=== PATIENT | male | born 1970 | race Caucasian/White ===

== ENCOUNTER → 2017-04-07 | Outpatient (CLI) | payer SELFPAY ==
--- NOTE | 2017-04-07 10:52 | CT ---
EXAMINATION TYPE: CT heart w calcium score DATE OF EXAM: 04/07/2017 10:08 AM COMPARISON: NONE HISTORY: Screening for cardiovascular disorder. 213.9 CT DLP: 67.3 mGycm Automated exposure control for dose reduction was used. CT CALCIUM SCORING Coronary calcium is a marker for plaque (fatty deposits) in a blood vessel or atherosclerosis (harden ing of the arteries). The presence and amount of calcium detected in a coronary artery by the CT sca n, indicates the presence and amount of atherosclerotic plaque. These calcium deposits appear years before the development of heart disease symptoms such as chest pain and shortness of breath. A calcium score is computed for each of the coronary arteries based upon the volume and density of th e calcium deposits. This can be referred to as your calcified plaque burden. It does not correspond directly to the percentage of narrowing in the artery but does correlate with the severity of the un derlying coronary atherosclerosis. PROCEDURE TECHNIQUE - Prospective Gating was used. Slice thickness: 3mm. Density threshold (HU): 130, Pixel threshold: 3, Algorithm: discrete. RESULTS Region: LM Calcium Score ([place]at[place]): 0 Volume (mm3): 0 Mass (g): 0 Region: RCA Calcium Score ([place]at[place]): 0 Volume (mm3): 0 Mass (g): 0 Region: LAD Calcium Score (Agat[place]): 0 Volume (mm3): 0 Mass (g): 0 Region: CX Calcium Score ([place]at[place]): 0 Volume (mm3): 0 Mass (g): 0 Total: Calcium Score ([place]atston): 0 Volume (mm3): 0 Mass (g): 0 TOTAL CALCIUM SCORE: 0 OTHER: Visualized liver is hypodense consistent with fatty infiltration. IMPRESSION: Calcium Score: 0 Implication: No identifiable plaque. Risk of Coronary Artery Disease: Very low, generally less than 5%.
== END | disposition home or self-care (01) ==
LOC: RADCTMAIN 08:54
PROVIDERS: ATTEND Internal Medicine Interventional Cardiology
DX: R07.9 Chest pain, unspecified (principal); I10 Essential (primary) hypertension
CPT/HCPCS: 75571

== ENCOUNTER → 2017-07-07 | Outpatient (CLI) | payer BC | END | disposition home or self-care (01) | LOC: LABWHC1 10:13 | PROVIDERS: ATTEND Internal Medicine Endocrinology, Diabetes & Metabolism | DX: E11.65 Type 2 diabetes mellitus with hyperglycemia (principal) | CPT/HCPCS: 36415; 84681 ==

== ENCOUNTER → 2017-07-28 | Outpatient (CLI) | payer BC ==
--- NOTE | 2017-07-28 09:30 | FL ---
EXAMINATION TYPE: FL barium swallow DATE OF EXAM: 07/28/2017 COMPARISON: NONE HISTORY: Food sticking right side proximal neck TECHNIQUE: Double contrast esophagram is performed. FINDINGS: Double air-contrast technique is utilized. The esophagus dilates to normal caliber has norm al contour to the gastroesophageal junction. Gastroesophageal junction appears normal. No stenosis is identified. No filling defects are evident. Some mild tertiary contractions may be present compatibl e with mild presbyesophagus. Note is made of reflux to the level of the aortic arch during this exami nation. There is complete stripping of the esophageal bolus in the horizontal drinking position. Overhead radiographs were obtained. IMPRESSIONS: 1. Gastroesophageal reflux. 2. Mild presbyesophagus.
== END | disposition home or self-care (01) ==
LOC: RADFLMAIN 07:56
PROVIDERS: ATTEND Otolaryngology
DX: K21.9 Gastro-esophageal reflux disease without esophagitis (principal); K22.8 Other specified diseases of esophagus
CPT/HCPCS: 74220

== ENCOUNTER → 2018-02-15 | Outpatient (CLI) | payer BC ==
[2018-02-15 09:10] LABS: Cholesterol 174 mg/dL (<200); HDL Cholesterol 40 mg/dL (40-60); LDL Cholesterol,Calculated 58 mg/dL (0-99); Triglycerides 381 mg/dL (<150)
[2018-02-15 19:38] LABS: Hemoglobin A1C 7.5 % (4.0-6.0)
== END | disposition home or self-care (01) ==
LOC: LABWHC1 08:12
PROVIDERS: ATTEND Internal Medicine Endocrinology, Diabetes & Metabolism
DX: E11.65 Type 2 diabetes mellitus with hyperglycemia (principal)
CPT/HCPCS: 36415; 80061; 83036

== ENCOUNTER → 2018-05-19 | Outpatient (CLI) | payer BC ==
[2018-05-19 08:49] LABS: ALT 68 U/L (21-72); AST 33 U/L (17-59); Albumin 4.6 g/dL (3.5-5.0); Alkaline Phosphatase 50 U/L (38-126); Anion Gap 11 mmol/L; Blood Urea Nitrogen 28 mg/dL (9-20); Calcium 9.5 mg/dL (8.4-10.2); Carbon Dioxide 27 mmol/L (22-30); Chloride 102 mmol/L (98-107); Cholesterol 160 mg/dL (<200); Glucose 155 mg/dL (74-99); HDL Cholesterol 39 mg/dL (40-60); LDL Cholesterol,Calculated 66 mg/dL (0-99); Sodium 140 mmol/L (137-145); Total Bilirubin 1.1 mg/dL (0.2-1.3); Total Protein 6.8 g/dL (6.3-8.2); Triglycerides 277 mg/dL (<150)
== END | disposition home or self-care (01) ==
LOC: LABWHC1 07:44
PROVIDERS: ATTEND Internal Medicine Endocrinology, Diabetes & Metabolism
DX: E11.65 Type 2 diabetes mellitus with hyperglycemia (principal)
CPT/HCPCS: 36415; 80053; 80061; 82043; 82570; 83036

== ENCOUNTER → 2018-09-28 | Outpatient (CLI) | payer BC ==
[2018-09-28 17:14] LABS: Albumin 4.7 g/dL (3.80-4.90); Albumin/Globulin Ratio 2.76 (1.20-2.10); Anion Gap 8.8 mmol/L (4.00-12.00); Calcium 9.5 mg/dL (8.7-10.3); Carbon Dioxide 26.2 mmol/L (21.6-31.8); Globulin 1.7 g/dL (2.1-3.7); LDL Cholesterol,Calculated 65.6 mg/dL (0.0-131.0); Potassium 4.6 mmol/L (3.5-5.5); Total Bilirubin 1.3 mg/dL (0.2-1.2); Total Protein 6.4 g/dL (6.2-8.2); VLDL Calculation 68.4 mg/dL (5.00-40.00)
[2018-09-28 19:48] LABS: Hemoglobin A1C 7.4 % (4.0-6.0)
== END | disposition home or self-care (01) ==
LOC: LABWHC1 07:51
PROVIDERS: ATTEND Internal Medicine Endocrinology, Diabetes & Metabolism
DX: E11.65 Type 2 diabetes mellitus with hyperglycemia (principal)
CPT/HCPCS: 36415; 80053; 80061; 82607; 83036; 84443

== ENCOUNTER → 2019-03-24 | Outpatient (CLI) | payer BC ==
[2019-03-24 16:26] LABS: Albumin 4.6 g/dL (3.80-4.90); Albumin/Globulin Ratio 2.88 (1.60-3.17); Anion Gap 9.1 mmol/L (4.00-12.00); Calcium 9.6 mg/dL (8.7-10.3); Carbon Dioxide 27.9 mmol/L (21.6-31.8); Globulin 1.6 g/dL (1.6-3.3); LDL Cholesterol,Calculated 49.8 mg/dL (0.0-131.0); Potassium 4.4 mmol/L (3.5-5.5); Total Protein 6.2 g/dL (6.2-8.2); VLDL Calculation 62.2 mg/dL (5.00-40.00)
[2019-03-24 18:27] LABS: Hemoglobin A1C 8.6 % (4.0-6.0)
== END | disposition home or self-care (01) ==
LOC: LABWHC1 07:51
PROVIDERS: ATTEND Internal Medicine Endocrinology, Diabetes & Metabolism
DX: N40.0 Benign prostatic hyperplasia without lower urinary tract symptoms (principal); E11.65 Type 2 diabetes mellitus with hyperglycemia
CPT/HCPCS: 36415; 80053; 80061; 83036; 84153

== ENCOUNTER → 2019-11-10 | Day surgery (SDC) | payer BC ==
[2019-11-08 15:19] VITALS: BMI 30.1
[~2019-11-10] MED LIST: LACTATED RINGERS 1,000 ML IV ONE; LACTATED RINGERS 1,000 ML IV SCH; LIDOCAINE 1% INJ 10MG/ML (20 ML MDV) ONE; MIDAZOLAM 2 MG/2 ML VIAL ONE; PROPOFOL 10 MG/ML 20 ML VIAL IV ONE; fentaNYL (PF) 50 MCG/ML 2 ML AMP ONE
[2019-11-10 07:25] VITALS: TEMP 97.2
[2019-11-10 07:30] LABS: Glucose,Whole Blood 179 mg/dL (75-99)
--- NOTE | 2019-11-10 08:53 | P.GSHP ---
History of Present Illness H&P Date: 11/10/19 Chief Complaint: colon cancer screening patient here today for colonoscopy. Last colonoscopy 6 years ago. Family history of colon cancer in his mother. No bowel complaints. Previous colonoscopy normal. Past Medical History Past Medical History: Chest Pain / Angina, Diabetes Mellitus, GERD/Reflux, Hyperlipidemia, Hypertension History of Any Multi-Drug Resistant Organisms: None Reported Past Surgical History: Hernia Repair Additional Past Surgical History / Comment(s): umbilical area hernia 2006, colonoscopy 10/2014 Past Anesthesia/Blood Transfusion Reactions: No Reported Reaction Smoking Status: Former smoker - Past Family History Mother Family Medical History: Cancer, Diabetes Mellitus, Hypertension Additional Family Medical History / Comment(s): Colon cancer Father Family Medical History: Diabetes Mellitus Additional Family Medical History / Comment(s): CABG Medications and Allergies Home Medications Medication Instructions Recorded Confirmed Type Aspirin 81 mg PO DAILY 11/08/14 11/10/19 History Lisinopril [Prinivil] 10 mg PO DAILY 11/08/14 11/10/19 History Omeprazole [PriLOSEC] 20 mg PO AC-BRKFST 11/08/14 11/10/19 History Pravastatin Sodium [Pravachol] 20 mg PO HS 11/08/14 11/10/19 History Acetaminophen Tab [Tylenol] 650 mg PO Q4HR PRN #0 tab 04/09/15 11/10/19 Rx Nitroglycerin Sl Tabs [Nitrostat] 0.4 mg SUBLINGUAL Q5M PRN #25 tab 04/09/15 11/10/19 Rx Co Q-10. 2 each PO DAILY 11/08/19 11/10/19 History Dapagliflozin Propanediol [Farxiga] 10 mg PO DAILY 11/08/19 11/10/19 History Ergocalciferol [Vitamin D2] 50,000 unit PO MO 11/08/19 11/10/19 History Fish Oil. 1 each PO DAILY 11/08/19 11/10/19 History Glimepiride [Amaryl] 4 mg PO BID 11/08/19 11/08/19 History Insulin Glargine,Hum.rec.anlog 26 unit SQ HS 11/08/19 11/10/19 History [Felicita Wheat] L.acidoph,Paracasei, B.lactis 2 each PO DAILY 11/08/19 11/10/19 History [Probiotic] Metoprolol Succinate (ER) [Toprol 25 mg PO HS 11/08/19 11/10/19 History Xl] Multivit-Min/Folic/Vit K/Lycop 2 each PO DAILY 11/08/19 11/10/19 History [Men's Multivitamin Tablet] Vit B Complex 1 each PO DAILY 11/08/19 11/10/19 History metFORMIN HCL 1,000 mg PO BID 11/08/19 11/10/19 History Allergies Allergy/AdvReac Type Severity Reaction Status Date / Time No Known Allergies Allergy Verified 11/08/19 15:09 Surgical - Exam Vital Signs Temp Pulse Resp BP Pulse Ox 97.2 F L 82 18 132/79 96 11/10/19 07:21 11/10/19 07:21 11/10/19 07:21 11/10/19 07:21 11/10/19 07:21 Physical exam: General: Well-developed, well-nourished HEENT: Normocephalic, sclerae nonicteric Abdomen: Nontender, nondistended Extremities: No edema Neuro: Alert and oriented Results - Labs Abnormal Lab Results - Last 24 Hours (Table) 11/10/19 Range/Units 07:25 POC Glucose (mg/dL) 179 H (75-99) mg/dL Assessment and Plan (1) Colon cancer screening Narrative/Plan: Will proceed with colonoscopy Current Visit: Yes Status: Acute Code(s): Z12.11 - ENCOUNTER FOR SCREENING FOR MALIGNANT NEOPLASM OF COLON SNOMED Code(s): 750128633
--- NOTE | 2019-11-10 09:04 | P.PCN ---
Date of Procedure: 11/10/19 Procedure(s) Performed: PREOPERATIVE DIAGNOSIS: colon cancer screening POSTOPERATIVE DIAGNOSIS: normal exam PROCEDURE: Colonoscopy ANESTHESIA: MAC SURGEON: Ander Willoughby M.D. SPECIMENS: none ENDOSCOPIC PROCEDURE: The patient was placed on the endoscopy table in the left decubitus position. The Olympus colonoscope was inserted into the anus and passed under direct visualization to the base of the cecum. The appendiceal orifice was visualized. From that point the scope was slowly withdrawn inspecti ng all surfaces carefully. There were no neoplastic inflammatory or polypoid lesions throughout the cecum, ascending, transverse, descending, sigmoid and rectum. There was no visible diverticulosis noted. Digital rectal examination was normal. The patient was taken to the recovery room in stable condition per anesthesia guidelines. RECOMMENDATIONS: increase fiber. Follow-up colonoscopy 5 years.
[2019-11-10 09:28] LABS: Glucose,Whole Blood 166 mg/dL (75-99)
[2019-11-10 09:30] VITALS: BP 128/77; PULSE 72; RESP 16
== END ==
LOC: ORWHC2ENDO 06:50
PROVIDERS: ATTEND Surgery
DX: Z12.11 Encounter for screening for malignant neoplasm of colon (principal); I10 Essential (primary) hypertension; E11.9 Type 2 diabetes mellitus without complications; K21.9 Gastro-esophageal reflux disease without esophagitis; E78.5 Hyperlipidemia, unspecified; Z98.890 Other specified postprocedural states; Z83.3 Family history of diabetes mellitus; Z82.49 Family history of ischemic heart disease and other diseases of the circulatory system; Z80.0 Family history of malignant neoplasm of digestive organs; Z87.891 Personal history of nicotine dependence; Z79.82 Long term (current) use of aspirin; Z79.4 Long term (current) use of insulin; Z79.899 Other long term (current) drug therapy
CPT/HCPCS: J2250; J2001; J3010; J2704; G0105

== ENCOUNTER 2024-11-07 07:12 | Day surgery (SDC) | payer BC ==
[2024-11-03 13:25] VITALS: BMI 28.7
[2024-11-07] MEDS ORDERED: LACTATED RINGERS 1,000 ML IV SCH (07:30)
[2024-11-07] MEDS ORDERED: LIDOCAINE 1% (10MG/ML) FOR IV START INTRADERMA PRN (07:30)
[2024-11-07 07:34] VITALS: RESP 16; TEMP 97.4
[2024-11-07] MEDS: IV FLUID CONTINUATION 1,000 ML IV ONE (08:00)
[2024-11-07] MEDS ORDERED: PROPOFOL 10 MG/ML 20 ML VIAL IV ONE (08:00)
--- NOTE | 2024-11-07 08:04 | P.GSHP ---
History of Present Illness H&P Date: 11/07/24 Chief Complaint: Colon cancer screening 54-year-old male here for colonoscopy. Last colonoscopy 5 years ago. Family history of colon cancer in his mother. No bowel complaints. Last colonoscopy normal. Past Medical History Past Medical History: Chest Pain / Angina, Diabetes Mellitus, GERD/Reflux, Hyperlipidemia, Hypertension History of Any Multi-Drug Resistant Organisms: None Reported Past Surgical History: Hernia Repair Additional Past Surgical History / Comment(s): umbilical area hernia 2006, colonoscopy 10/2014 Past Anesthesia/Blood Transfusion Reactions: No Reported Reaction Additional Past Anesthesia/Blood Transfusion Reaction / Comment(s): no blood transfusion Smoking Status: Never smoker - Past Family History Mother Family Medical History: Cancer, Diabetes Mellitus, Hypertension Additional Family Medical History / Comment(s): Colon cancer Father Family Medical History: Diabetes Mellitus Additional Family Medical History / Comment(s): CABG Medications and Allergies Home Medications Medication Instructions Recorded Confirmed Type Aspirin 81 mg PO DAILY 11/08/14 11/03/24 History Omeprazole [PriLOSEC] 20 mg PO AC-BRKFST 11/08/14 11/03/24 History Pravastatin Sodium [Pravachol] 20 mg PO HS 11/08/14 11/03/24 History lisinopriL [Prinivil] 20 mg PO DAILY 11/08/14 11/07/24 History Acetaminophen Tab [Tylenol] 650 mg PO Q4HR PRN #0 tab 04/09/15 11/03/24 Rx Nitroglycerin Sl Tabs [Nitrostat] 0.4 mg SUBLINGUAL Q5M PRN #25 tab 04/09/15 11/03/24 Rx Co Q-10. 2 each PO DAILY 11/08/19 11/03/24 History Dapagliflozin Propanediol [Farxiga] 10 mg PO DAILY 11/08/19 11/03/24 History Ergocalciferol [Vitamin D2] 50,000 unit PO MO 11/08/19 11/03/24 History Fish Oil. 1 each PO DAILY 11/08/19 11/03/24 History Insulin Glargine,Hum.rec.anlog 50 unit SQ HS 11/08/19 11/03/24 History [Toujeo Max Solostar] L.acidoph,Paracasei, B.lactis 2 each PO DAILY 11/08/19 11/03/24 History [Probiotic] Metoprolol Succinate (ER) [Toprol 25 mg PO HS 11/08/19 11/07/24 History Xl] Multivit-Min/Folic/Vit K/Lycop 2 each PO BID 11/08/19 11/03/24 History [Men's Multivitamin Tablet] Vit B Complex 1 each PO DAILY 11/08/19 11/03/24 History metFORMIN HCL [Glucophage] 1,000 mg PO BID 11/08/19 11/07/24 History Allergies Allergy/AdvReac Type Severity Reaction Status Date / Time No Known Allergies Allergy Verified 11/07/24 07:32 Surgical - Exam Vital Signs Temp Pulse Resp BP Pulse Ox 97.4 F L 89 16 143/83 97 11/07/24 07:33 11/07/24 07:33 11/07/24 07:33 11/07/24 07:33 11/07/24 07:33 Physical exam: General: Well-developed, well-nourished HEENT: Normocephalic, sclerae nonicteric Abdomen: Nontender, nondistended Extremities: No edema Neuro: Alert and oriented Assessment and Plan (1) Colon cancer screening Narrative/Plan: Will proceed with colonoscopy at this time. Current Visit: No Status: Acute Code(s): Z12.11 - ENCOUNTER FOR SCREENING FOR MALIGNANT NEOPLASM OF COLON SNOMED Code(s): 862184124
[2024-11-07 08:15] LABS: Glucose,Whole Blood 121 mg/dL (70-110)
--- NOTE | 2024-11-07 08:22 | P.PCN ---
Date of Procedure: 11/07/24 Procedure(s) Performed: PREOPERATIVE DIAGNOSIS: Colon cancer screening, family history in mother POSTOPERATIVE DIAGNOSIS: Normal exam PROCEDURE: Colonoscopy ANESTHESIA: MAC SURGEON: Ander Willoughby M.D. SPECIMENS: None ENDOSCOPIC PROCEDURE: The patient was placed on the endoscopy table in the left decubitus position. The Olympus colonoscope was inserted into the anus and passed under direct visualization to the base of the cecum. The appendiceal orifice was visualized. From that point the scope was slowly withdrawn inspecting all surfaces carefully. There were no neoplastic inflammatory or polypoid lesions throughout the cecum, ascending, transverse, descending, sigmoid and rectum. There was no visible diverticulosis noted. Digital rectal examination was normal. The patient was taken to the recovery room in stable condition per anesthesia guidelines. RECOMMENDATIONS: Resume diet. Repeat colonoscopy 5 years.
[2024-11-07 08:42] VITALS: BP 147/80; PULSE 87
== END 2024-11-07 09:13 | disposition home or self-care (01) ==
LOC: ORWHC2ENDO 07:12
PROVIDERS: ATTEND Surgery
DX: Z12.11 Encounter for screening for malignant neoplasm of colon (principal); E11.9 Type 2 diabetes mellitus without complications; E78.5 Hyperlipidemia, unspecified; I10 Essential (primary) hypertension; K21.9 Gastro-esophageal reflux disease without esophagitis; Z79.84 Long term (current) use of oral hypoglycemic drugs; Z80.0 Family history of malignant neoplasm of digestive organs; Z98.890 Other specified postprocedural states; Z79.4 Long term (current) use of insulin; Z79.899 Other long term (current) drug therapy
CPT/HCPCS: 45378; J2704